=== PATIENT | female | born 1960 ===

== ENCOUNTER 2018-05-21 17:41 | Emergency (ER) | payer OTHER ==
[~2018-05-21] VITALS: Ht 157.5 cm; Wt 77.1 kg
== END 2018-05-21 18:28 | disposition home or self-care (01) ==
LOC: ER 17:41
DX: F12.959 Cannabis use, unspecified with psychotic disorder, unspecified (principal); F17.200 Nicotine dependence, unspecified, uncomplicated
CPT/HCPCS: 99284

== ENCOUNTER → 2023-03-03 | Outpatient (CLI) | payer MEDICARE, OTHER ==
[2023-03-03 13:57] LABS: Stool Occult Bld Immuno 1 Negative (NEGATIVE)
== END | disposition home or self-care (01) ==
LOC: LAB SHORT 07:30 → LAB 07:30
PROVIDERS: Nurse Practitioner Family
DX: Z12.11 Encounter for screening for malignant neoplasm of colon (principal); Z01.89 Encounter for other specified special examinations
CPT/HCPCS: 82274